=== PATIENT | male | born 1990 | race African-American/Black ===

== ENCOUNTER 2019-11-28 13:33 | Emergency (ER) | payer OTHER ==
[~2019-11-28] VITALS: Ht 182.9 cm; Wt 113.6 kg
[2019-11-28 13:37] VITALS: BP 126/83; TEMP 98.1
[2019-11-28] MEDS ORDERED: FLEXERIL 1010 MG/TAB PO (15:15)
[2019-11-28 15:33] VITALS: PULSE 65
== END 2019-11-28 15:33 | disposition home or self-care (01) ==
LOC: COL.ER 13:33
DX: S06.0X0A Concussion without loss of consciousness, initial encounter (principal); S39.012A Strain of muscle, fascia and tendon of lower back, initial encounter; V40.5XXA Car driver injured in collision with pedestrian or animal in traffic accident, initial encounter